=== PATIENT | female | born 1960 | race Caucasian/White ===

== ENCOUNTER 2022-04-22 08:55 | Emergency (ER) | payer MEDICARE, SELFPAY ==
--- NOTE | ~2022-04-22 | XR_ITS ---
EXAMINATION: XR chest 2V DATE: 04/22/2022 10:48 INDICATION: Cough and decreased breath sounds TECHNIQUE: PA and lateral views of the chest were obtained. COMPARISON: None FINDINGS: Cardiomegaly with lobular contour which could be due to cardiomegaly and/or pericardial effusion. Pul monary vascular congestion but without satya pulmonary edema. Right paracardial fat pad. Additional m ild bibasilar opacities which could represent atelectasis or pneumonia. Small bilateral pleural effus ions. No pneumothorax. Age-indeterminate mild anterior wedging of a couple mid thoracic vertebral bod ies. Mild thoracic spondylosis. Bilateral cervical ribs. IMPRESSION: 1. Enlarged somewhat globular cardiac silhouette which could represent cardiomegaly and/or pericardia l effusion. 2. Small bilateral pleural effusions with bibasilar opacities which could represent atelectasis or pn eumonia. Reviewed, dictated and finalized at location [facility] IMPRESSION: 1. Enlarged somewhat globular cardiac silhouette which could represent cardiome hortensia and/or pericardial effusion. 2. Small bilateral pleural effusions with bibasilar opacities which could repre sent atelectasis or pneumonia.
[2022-04-22 09:03] VITALS: BP 172/88; PULSE 118; RESP 28; O2SAT 97
--- NOTE | 2022-04-22 10:32 | ED.URI ---
HPI - URI/Sore Throat General Chief Complaint: Upper Respiratory Infection Stated Complaint: Chest Pain Time Seen by Provider: 04/22/22 10:32 Source: patient, RN notes reviewed and old records reviewed Mode of arrival: ambulatory Limitations: no limitations History of Present Illness HPI Narrative: 62 year old female presents to express care accompanied by neighbor with complaints of cough, some wheezing, shortness of breath especially with activity, headache and some episodes of diarrhea since April. Patient reports that she has taken Tylenol, Mucinex, and Sudafed for her symptoms. Patient denies any acute chest pain or pressure states some discomfort to lower rib areas with coughing. Patient reports cardiac ablation surgery,on Warfarin but is poor historian in regards to reason for ablation and warfarin therapy. MD elicited complaint: cough Pertinent past history: other (cardiac ablation) Onset (ago): day(s) () Able to tolerate fluids by mouth: Yes Treatments prior to arrival: acetaminophen and other (Mucinex and Sudafed) Related Data Home Medications Medication Instructions Recorded Confirmed atorvastatin 40 mg tablet 40 mg PO DAILY 04/22/22 04/22/22 betamethasone valerate 0.1 % 1 applic topical DAILY 04/22/22 04/22/22 topical cream fenofibrate 160 mg tablet 160 mg PO DAILY 04/22/22 04/22/22 glipizide 10 mg tablet 10 mg PO DAILY 04/22/22 04/22/22 losartan 50 mg tablet 50 mg PO DAILY 04/22/22 04/22/22 metformin 500 mg tablet,extended 500 mg PO BID 04/22/22 04/22/22 release 24 hr metoprolol succinate 25 mg 25 mg PO DAILY 04/22/22 04/22/22 tablet,extended release 24 hr sertraline 100 mg tablet 100 mg PO DAILY 04/22/22 04/22/22 sitagliptin phosphate 100 mg 100 mg PO DAILY 04/22/22 04/22/22 tablet (Januvia) warfarin 3 mg tablet 3 mg PO DAILY 04/22/22 04/22/22 Allergies Allergy/AdvReac Type Severity Reaction Status Date / Time No Known Allergies Allergy Verified 04/22/22 09:45 Review of Systems Review of Systems: CONSTITUTIONAL: Denies malaise, chills, sweats, or fever. EYES: Denies visual changes, redness, or discharge. ENT: Reports rhinorrhea, congestion, sinus pain, otalgia and sore throat. CARDIOVASCULAR: Denies chest pain, palpitations, or edema, reports rib pain with coughing RESPIRATORY: Reports cough.? Reports dyspnea with exertion GASTROINTESTINAL: Denies abdominal pain, nausea, vomiting, some episodes of diarrhea SKIN: Denies rash or itching. MUSCULOSKELETAL: Denies myalgia. NEUROLOGIC: Reports headache. All systems reviewed & are unremarkable except as noted in HPI and below PMFSH Past Medical History Medical History (Updated 04/25/22 @ 08:10 by Ivett Alvarez NP) Anxiety and depression Diabetes Elevated cholesterol Hypertension Surgical History Surgical History (Updated 04/24/22 @ 10:31 by Ivett Alvarez NP) H/O tubal ligation History of cardiac radiofrequency ablation Social History Social History (Updated 04/24/22 @ 10:32 by Ivett Alvarez NP) Smoking status: Never smoker Alcohol intake: unknown Substance use: never Substance use type: does not use Gender identity (if verbalized by the patient): Female Comments At time of signature, agree with nursing past medical, surgical, social and family history. There is no relevant family history pertinent to the presenting complaint Exam Narrative: GENERAL: Well-appearing, well-nourished, and in no acute distress. HEAD: Normocephalic EYES: PERRLA, conjunctivae clear ENT: Nares clear, turbinates edematous and erythematous, clear discharge. Mucous membranes moist. TM pearly zapata with dull light reflex bilaterally; no tragal tenderness. Oropharynx erythematous without lesions. Tonsils not enlarged and without exudate, no drooling, no hoarseness, no trismus, uvula midline. NECK: Supple. No lymphadenopathy CHEST: Decreased breath sounds bases on auscultation, breath sounds equal.
== END 2022-04-22 11:17 | disposition home or self-care (01) ==
PROVIDERS: Emergency Provider Registered Nurse; PCP Physician Assistant
DX: J18.9 Pneumonia, unspecified organism (principal); E11.9 Type 2 diabetes mellitus without complications; E78.00 Pure hypercholesterolemia, unspecified; I10 Essential (primary) hypertension; F41.9 Anxiety disorder, unspecified; F32.A Depression, unspecified
CPT/HCPCS: 71046; 99213; G0463

== ENCOUNTER 2022-07-27 08:46 | Emergency (ER) | payer MEDICARE, SELFPAY ==
[2022-07-27 08:52] VITALS: BP 123/92; PULSE 99; RESP 20; TEMP 36.8; O2SAT 94
--- NOTE | 2022-07-27 09:08 | ED.URI ---
HPI - URI/Sore Throat General Chief Complaint: Upper Respiratory Infection Stated Complaint: Cough/Chest Congestion Source: patient and RN notes reviewed History of Present Illness HPI Narrative: 62-year-old female presents to urgent care with complaints of a cough that started yesterday. Patient reports wheezing at nighttime. Patient states her cough is worse at nighttime. Patient also stating she wakes up with a headache. Denies any fevers, chills, vomiting, chest pain sore throat, or congestion. Patient has been using an inhaler from last year as well as [id number] cough medicine with moderate relief. Some parts of this dictation were generated by voice recognition software and may contain typographical and/or grammatical inaccuracies. Related Data Home Medications Medication Instructions Recorded Confirmed atorvastatin 40 mg tablet 40 mg PO DAILY 04/22/22 04/22/22 betamethasone valerate 0.1 % 1 applic topical DAILY 04/22/22 04/22/22 topical cream fenofibrate 160 mg tablet 160 mg PO DAILY 04/22/22 04/22/22 glipizide 10 mg tablet 10 mg PO DAILY 04/22/22 04/22/22 losartan 50 mg tablet 50 mg PO DAILY 04/22/22 04/22/22 metformin 500 mg tablet,extended 500 mg PO BID 04/22/22 04/22/22 release 24 hr metoprolol succinate 25 mg 25 mg PO DAILY 04/22/22 04/22/22 tablet,extended release 24 hr sertraline 100 mg tablet 100 mg PO DAILY 04/22/22 04/22/22 sitagliptin phosphate 100 mg 100 mg PO DAILY 04/22/22 04/22/22 tablet (Januvia) warfarin 3 mg tablet 3 mg PO DAILY 04/22/22 04/22/22 Allergies Allergy/AdvReac Type Severity Reaction Status Date / Time No Known Allergies Allergy Verified 07/27/22 08:55 Review of Systems Review of Systems: CONSTITUTIONAL: Denies fever, chills, or sweats. EYES: Denies visual changes, redness, or discharge. ENT: Denies otalgia and sore throat CARDIOVASCULAR: Denies chest pain, palpitations, or edema. RESPIRATORY: Reports cough and intermittent shortness of breath GASTROINTESTINAL: Denies abdominal pain, nausea, vomiting, or diarrhea. GENITOURINARY: Denies dysuria or hematuria. SKIN: Denies rash or itching. MUSCULOSKELETAL: Denies back pain, joint pain, or myalgia. NEUROLOGIC: Reports headache and mornings PMFSH Past Medical History Medical History (Updated 07/27/22 @ 09:13 by Chelsey Meier APRN) Anxiety and depression Diabetes Elevated cholesterol Hypertension Surgical History Surgical History (Updated 04/24/22 @ 10:31 by Ivett Alvarez NP) H/O tubal ligation History of cardiac radiofrequency ablation Social History Social History (Updated 04/24/22 @ 10:32 by Ivett Alvarez NP) Smoking status: Never smoker Alcohol intake: unknown Substance use: never Substance use type: does not use Gender identity (if verbalized by the patient): Female Comments At the time of my signature, I reviewed and agree with the nursing past medical, surgical, social, and family history. There is no relevant family history pertinent to the patient complaint. Exam Narrative: GENERAL: This is a well-nourished, well-developed patient, in no apparent distress. HEAD: normocephalic, atraumatic. EYES: PERRL. Sclera clear/white. Vision is grossly intact. EARS: External ears normal, auditory canals clear and without drainage, TMs normal without perforation. Hearing grossly intact. NOSE: External nose normal with no obvious nasal discharge, nares without redness, no rhinorrhea. THROAT: Mucous membranes moist, posterior pharynx clear. NECK: Neck supple, non-tender without lymphadenopathy, masses or thyromegaly. CARDIOVASCULAR: Regular rate and rhythm without murmurs, gallops, or rubs. RESPIRATORY: Clear to auscultation. Breath sounds equal bilaterally. No wheezes, rales, or rhonchi. GASTROINTESTINAL: Abdomen soft, non-tender, nondistended. Bowel sounds are active. No hepato-splenomegaly, or palpable masses. No guarding. SKIN: warm, intact with no suspicious lesions or r
== END 2022-07-27 09:15 | disposition home or self-care (01) ==
PROVIDERS: Emergency Provider Nurse Practitioner Family; PCP Physician Assistant
DX: J40 Bronchitis, not specified as acute or chronic (principal); E11.9 Type 2 diabetes mellitus without complications; E78.00 Pure hypercholesterolemia, unspecified; I10 Essential (primary) hypertension; F41.9 Anxiety disorder, unspecified; F32.A Depression, unspecified
CPT/HCPCS: 99213; G0463

== ENCOUNTER 2022-09-07 09:50 | Emergency (ER) | payer MEDICARE, SELFPAY ==
--- NOTE | 2022-09-07 09:55 | ED.CHESTPAIN ---
HPI - Chest Pain General Chief Complaint: Chest Pain Stated Complaint: Chest Pain Time Seen by Provider: 09/07/22 09:55 Source: patient and RN notes reviewed History of Present Illness HPI narrative: Patient is a 62-year-old female who presents to urgent care with complaints of mid chest discomfort for the last 2 days. Patient states that she notices it more after eating. Denies any history of heart disease. Patient is uncertain as to why she is taking Coumadin. Patient is not taking anything [id number] for her symptoms however states that she took a large Mucinex and feels that it may have gotten stuck in her throat. Denies any recent shortness of breath, fever, nausea, vomiting. No other acute complaints. No acute distress noted. Patient aware of the plan of care. Some parts of this dictation were generated by voice recognition software and may contain typographical and/or grammatical inaccuracies. Related Data Home Medications Medication Instructions Recorded Confirmed atorvastatin 40 mg tablet 40 mg PO DAILY 04/22/22 07/27/22 betamethasone valerate 0.1 % 1 applic topical DAILY 04/22/22 07/27/22 topical cream fenofibrate 160 mg tablet 160 mg PO DAILY 04/22/22 07/27/22 glipizide 10 mg tablet 10 mg PO DAILY 04/22/22 07/27/22 losartan 50 mg tablet 50 mg PO DAILY 04/22/22 07/27/22 metformin 500 mg tablet,extended 500 mg PO BID 04/22/22 07/27/22 release 24 hr metoprolol succinate 25 mg 25 mg PO DAILY 04/22/22 07/27/22 tablet,extended release 24 hr sertraline 100 mg tablet 100 mg PO DAILY 04/22/22 07/27/22 sitagliptin phosphate 100 mg 100 mg PO DAILY 04/22/22 07/27/22 tablet (Januvia) warfarin 3 mg tablet 3 mg PO DAILY 04/22/22 07/27/22 Allergies Allergy/AdvReac Type Severity Reaction Status Date / Time No Known Allergies Allergy Verified 07/27/22 08:55 Review of Systems Review of Systems: CONSTITUTIONAL: Denies fever, chills, or sweats. EYES: Denies visual changes, redness, or discharge. ENT: Denies rhinorrhea, congestion, sore throat, or otalgia. CARDIOVASCULAR: Reports of mid chest discomfort without palpitations RESPIRATORY: Denies cough or dyspnea. GASTROINTESTINAL: Denies abdominal pain, nausea, vomiting, or diarrhea. GENITOURINARY: Denies dysuria or hematuria. SKIN: Denies rash or itching. MUSCULOSKELETAL: Denies back pain, joint pain, or myalgia. NEUROLOGIC: Denies headache, numbness, or weakness. All other systems reviewed are negative, except as documented in HPI. [facility] Past Medical History Medical History (Updated 09/07/22 @ 10:27 by CAROLANN Bullock) Anxiety and depression Diabetes Elevated cholesterol Hypertension Surgical History Surgical History (Updated 04/24/22 @ 10:31 by Ivett Alvarez NP) H/O tubal ligation History of cardiac radiofrequency ablation Social History Social History (Updated 04/24/22 @ 10:32 by Ivett Alvarez NP) Smoking status: Never smoker Alcohol intake: unknown Substance use: never Substance use type: does not use Gender identity (if verbalized by the patient): Female Comments At the time of my signature, I reviewed and agree with the nursing past medical, surgical, social, and family history. There is no relevant family history pertinent to the patient complaint. Exam Narrative: GENERAL: This is a well-nourished, well-developed patient, in no apparent distress. HEAD: normocephalic, atraumatic. EYES: PERRL. Sclera clear/white. Vision is grossly intact. EARS: External ears normal NOSE: External nose normal with no obvious nasal discharge, nares without redness, no rhinorrhea. THROAT: Mucous membranes moist, posterior pharynx clear. NECK: Neck supple, non-tender without lymphadenopathy, masses or thyromegaly. CARDIOVASCULAR: Irregular RESPIRATORY: Clear to auscultation. Breath sounds equal bilaterally. No wheezes, rales, or rhonchi. SKIN: warm, intact with no suspicious lesions or rash, good texture and turgor. N
[2022-09-07 09:56] VITALS: BP 112/76; PULSE 84; RESP 18; TEMP 36.8; O2SAT 96
--- NOTE | 2022-09-07 09:59 | ECG_ITS ---
Measurements Intervals [place] Rate: 92 P: [place]: 0 QRS: 30 QRSD: 91 T: 31 QT: 349 QTc: 433 Interpretive Statements ATRIAL FIBRILLATION ABNORMAL RHYTHM ECG NO PREVIOUS ECG AVAILABLE FOR COMPARISON Electronically Signed On 09-08-2022 14:50:03 CDT by Evita Montanez M.D.
== END 2022-09-07 10:39 | disposition short-term general hospital (02) ==
PROVIDERS: Emergency Provider Nurse Practitioner Family; PCP Physician Assistant
DX: R07.9 Chest pain, unspecified (principal); I48.91 Unspecified atrial fibrillation; E11.9 Type 2 diabetes mellitus without complications; E78.00 Pure hypercholesterolemia, unspecified; I10 Essential (primary) hypertension; F41.9 Anxiety disorder, unspecified; F32.A Depression, unspecified; Z79.01 Long term (current) use of anticoagulants
CPT/HCPCS: 93005; 99213; G0463